=== PATIENT | male | born 1980 | race Caucasian/White ===

== ENCOUNTER 2025-03-23 21:28 | Emergency (ER) | payer SELFPAY ==
[~2025-03-23] VITALS: Ht 167.6 cm; Wt 68.0 kg
[2025-03-23 21:59] LABS: PLATELET COUNT (AUTO) 251 K/uL (150-450); RED BLOOD CELL COUNT(AUTO) 3.97 MIL/uL (4.5-6.0); RED CELL DISTRIBUTION WIDTH 13.2 % (11.5-15.0); WHITE BLOOD COUNT (AUTO) 5.3 K/uL (4.3-11.0)
[2025-03-23 22:06] LABS: CALCIUM, SERUM 8.7 mg/dL (8.5-10.1); CREATININE 1.3 mg/dL (0.6-1.3); SODIUM SERUM 137 mmol/L (136-145); UREA NITROGEN, BLOOD 10 mg/dL (7-18)
[2025-03-23 22:11] LABS: ASPARTATE AMINOTRANSFERASE 20 U/L (15-37); TOTAL PROTEIN, SERUM 7.1 g/dL (6.4-8.2)
[2025-03-23] MEDS ORDERED: POTASSIUM CHLORIDE 20 MEQ TAB.PRT.SR PO ONE (23:24)
[2025-03-23] MEDS: POTASSIUM CHLORIDE 20 MEQ TAB.PRT.SR PO ONE (23:28)
[2025-03-23 23:56] LABS: AMPHETAMINE, URINE NEGATIVE (NEGATIVE); BARBITURATE, URINE NEGATIVE (NEGATIVE); BENZODIAZEPINE, URINE NEGATIVE (NEGATIVE); CANNABINOID, URINE NEGATIVE (NEGATIVE); COCCAINE, URINE NEGATIVE (NEGATIVE); OPIATE, URINE NEGATIVE (NEGATIVE)
[2025-03-24 00:49] VITALS: BP 104/75; TEMP 98; O2SAT 98
== END 2025-03-24 00:50 | disposition home or self-care (01) ==
LOC: ER 21:33
DX: R55 Syncope and collapse (principal); F19.10 Other psychoactive substance abuse, uncomplicated; I10 Essential (primary) hypertension; Z79.899 Other long term (current) drug therapy
CPT/HCPCS: 36415; 70450-TC; 71045-TC; 80048-TC; 80076-TC; 82962-TC; 83880; 84484-TC; 85025-TC; G0480